=== PATIENT | female | born 1945 | race Hispanic/Latino ===

== ENCOUNTER 2017-04-21 14:51 | Emergency (ER) | payer SELFPAY ==
[2017-04-21 15:00] VITALS: BP 134/64; PULSE 68; RESP 18; TEMP 98.5; O2SAT 100
--- NOTE | 2017-04-21 15:56 | ED PDOC ---
Lower Extremity Pain/Injury Time Seen by Provider: 04/21/17 15:13 Chief Complaint (Nursing): Lower Extremity Problem/Injury Chief Complaint (Provider): LE swelling. History Per: Patient History/Exam Limitations: no limitations Current Symptoms Are (Timing): Still Present Additional Complaint(s): 72yo F in ED for eval of ankle pain and knee pain sustained yesterday after playing soccer-pain with bearing wght, swelling improving with use of ice and elevation, however brusing still noted to ankle and swelling to knee. no numbness - Knee Description Of Injury: Twisted Alleviating Factor(s): Ice Therapy, Elevation, OTC Pain Medication (tyelnol) - Ankle/Foot Description Of Injury: Struck Against Object, Twisted Currently Unable To: Bear Weight Alleviating Factor(s): Ice Therapy Feet: 1 - swelling/discoloration. - Risk Factors DVT Risk Factors: Pos: None Past Medical History Reviewed: Historical Data, Nursing Documentation, Vital Signs Vital Signs: Last Vital Signs Temp 98.5 F 04/21/17 14:58 Pulse 68 04/21/17 14:58 Resp 18 04/21/17 14:58 BP 134/64 04/21/17 14:58 Pulse Ox 100 04/21/17 14:58 - Medical History PMH: HTN - Surgical History Surgical History: Appendectomy - Family History Family History: States: Unknown Family Hx - Home Medications Home Medications: Ambulatory Orders Medication Instructions Recorded Acetaminophen/Codeine Phosph 1 tab PO Q6H PRN #20 tab 02/03/15 [Acetaminophen/Codeine 300 mg-15 mg] - Allergies Allergies/Adverse Reactions: Allergies Allergy/AdvReac Type Severity Reaction Status Date / Time No Known Allergies Allergy Verified 04/21/17 14:56 Review of Systems ROS Statement: Except As Marked, All Systems Reviewed And Found Negative Musculoskeletal: Positive for: Leg Pain Physical Exam - Reviewed Nursing Documentation Reviewed: Yes Vital Signs Reviewed: Yes - Physical Exam Appears: Positive for: Well, Non-toxic, No Acute Distress Head Exam: Positive for: ATRAUMATIC, NORMAL INSPECTION, NORMOCEPHALIC Skin: Positive for: Normal Color, Warm Cardiovascular/Chest: Positive for: Regular Rate, Rhythm Respiratory: Positive for: CNT, Normal Breath Sounds Extremity: Positive for: Other (right knee and ankle-swelling to ankle alateral with discolocation and pain. knee without effusion mild swelling note medial and FROM of knee. good pulses. nuerovasc intact. ) Neurologic/Psych: Positive for: Alert, Oriented - ECG O2 Sat by Pulse Oximetry: 100 - Radiology X-Ray: Interpreted by Me Medical Decision Making Medical Decision Making: impression: ankl injury/knee injury plan: xray of knee and ankle. offered pain control and declined dx: knee contusion, ankle sprain rx: motrin or naproxen for home and EDA wrap to knee and aircast to ankle with f /u with pmd stable appearing. Disposition - Clinical Impression Clinical Impression: Ankle injury, Knee injury - Patient ED Disposition Is Patient to be Admitted: No Counseled Patient/Family Regarding: Studies Performed, Diagnosis, Need For Followup, Rx Given - Disposition Disposition: Routine/Home Disposition Time: 16:19 Condition: STABLE Instructions: Ankle Sprain (ED), Knee Pain (ED)
--- NOTE | 2017-04-21 16:35 | RAD ---
PROCEDURE: Right Knee Radiographs. HISTORY: COMPARISON: None available. FINDINGS: Rotated lateral view. BONES: No acute displaced fracture. JOINTS: No dislocation. JOINT EFFUSION: Moderate suprapatellar joint effusion. OTHER FINDINGS: Dense vascular calcifications. IMPRESSION: Moderate suprapatellar joint effusion. No acute displaced fracture or dislocation identified. If symptoms persist, or if there is continued clinical concern, x-ray follow-up in 7-10 days should be considered.
--- NOTE | 2017-04-21 17:18 | RAD ---
PROCEDURE: Right Ankle Radiographs. HISTORY: ANKLE PAIN COMPARISON: None available. FINDINGS: BONES: Oblique thin linear lucency involving the distal fibula, possibly nondisplaced fracture. Remainder the visualized osseous structures appear intact without evidence of acute displaced fracture. JOINTS: No dislocation. SOFT TISSUES: Soft tissue swelling most prominent laterally. Vascular calcifications. No evidence of radiopaque foreign body. OTHER FINDINGS: None. IMPRESSION: Oblique thin linear lucency involving the distal fibula, possibly nondisplaced fracture. Soft tissue swelling, most prominent laterally. Correlate clinically and suggest cross-sectional imaging if indicated. Findings discussed with ZULAY Retana on 04/21/17 at 5:01 p.m..
== END 2017-04-21 17:19 | disposition home or self-care (01) ==
LOC: H.ER 14:51
DX: S93.401A Sprain of unspecified ligament of right ankle, initial encounter (principal); S83.91XA Sprain of unspecified site of right knee, initial encounter; X50.9XXA Other and unspecified overexertion or strenuous movements or postures, initial encounter; Y92.322 Soccer field as the place of occurrence of the external cause